=== PATIENT | female | born 2000 | race Caucasian/White ===

== ENCOUNTER 2021-11-21 18:30 | Observation (INO) ==
[2021-11-21] MEDS ORDERED: SODIUM CHLORIDE 0.9% 500 ML IV STA (18:38)
[2021-11-21] MEDS ORDERED: cefTRIAXone SODIUM 2,000 MG/70 ML BAG IV STA (19:00)
--- NOTE | 2021-11-21 19:02 | Emergency Department Note ---
History of Present Illness General Chief complaint: Fever Stated complaint: FEVER, THROWING UP, POSS REACTION TO MEDS Time Seen by Provider: 11/21/21 18:51 Source: patient History of Present Illness Provider complaint: Fever and flulike symptoms with flank pain Onset (ago): hour(s) Location: abdomen and right Pain Consistency: + intermittent Maximum Pain Intensity: 7 Quality: + sharp Relieved By: + medication (Gurdon) Associated symptoms: + fever/chills, + malaise and + nausea/vomiting; no chest pain, no cough or no shortness of breath This is a 21-year-old female who presents with flulike symptoms since yesterday. She has also had right flank pain since yesterday morning. She describes it as sharp and intermittent. It is better with Gurdon. She has associated vomiting with it today and yesterday. She was seen here in the emergency department and diagnosed with a kidney stone. She was discharged on Gurdon and Bactrim. She states that when she got home she developed a fever over 101 which she also had this morning. She also vomited and developed diffuse myalgias as well as mal aise and chills. Her flank pain is still present but better. She denies any cough or cold symptoms, loss of taste or smell, chest pain, shortness of breath, or diarrhea. Home Medications Medication Instructions Recorded Confirmed Type cholecalciferol (vitamin D3) 25 0 mcg PO QAM 11/20/21 11/21/21 History mcg (1,000 unit) tablet (Vitamin D3) hydrocodone 5 mg-acetaminophen 325 1 tab PO Q6H PRN #10 tab 11/20/21 11/21/21 Rx mg tablet levonorgestrel (Kyleena) 17.5 mcg INTRAUTERINE CONT 11/20/21 11/21/21 History melatonin 5 mg tablet 10 mg PO HS PRN 11/20/21 11/21/21 History ondansetron 4 mg disintegrating 4 mg PO Q6H PRN #15 tab 11/20/21 11/21/21 Rx tablet sulfamethoxazole 800 1 tab PO Q12H 10 Days #20 tab 11/20/21 11/21/21 Rx mg-trimethoprim 160 mg tablet (Bactrim DS) Allergies Allergy/AdvReac Type Severity Reaction Status Date / Time Penicillins Allergy Mild Rash Unverified 11/20/21 10:04 Past Med/Surg History Medical History No significant past medical history Surgical History No significant past surgical history Social History Smoking Status: Current every day smoker Tobacco Type: E-cigarettes / Vaping Preferred Language: Sinhala current occupational status: student Feels Safe at Home: Yes Review of Systems See HPI for pertinent positives & negatives. and A total of 10 systems reviewed and were otherwise negative Physical Exam Vital Signs Vital Signs - 24 hr 11/21/21 18:35 11/21/21 19:37 11/21/21 22:00 Temperature 37.5 C Temperature Source Temporal Artery Scan Oral Pulse Rate 116 H Pulse Rate [Finger] 101 H 106 H Pulse Rhythm Regular Pulse Strength Normal Respiratory Rate 20 16 18 Respiratory Effort / Characteristics Non-Labored Spontaneous Respiratory Depth Normal Respiratory Pattern Regular Blood Pressure 115/65 Blood Pressure [Right Arm] 117/73 128/62 Blood Pressure Mean 81 Blood Pressure Mean [Right Arm] 87 84 Blood Pressure Position Sitting Pulse Oximetry 95 99 95 Oxygen Delivery Method Room Air Room Air Room Air Sepsis Recent Fever Within 48 Hours Yes Sepsis New/Unexplained Change in Mental Status No Sepsis Action Taken by Nursing No Action Required Constitutional: Vital signs reviewed. Eyes: Pupils are equal round reactive to light. Conjunctiva are noninjected. ENT: Pharynx is clear without erythema or exudate. Mucous membranes are moist. Neck supple without meningeal signs. Respiratory: Clear to auscultation bilaterally. Breath sounds are equal bilaterally. Cardiovascular: Tachycardia. Heart rate 112. GI: Soft, nondistended and nontender. Bowel sounds are present. Musculoskeletal: No peripheral edema. Mild right CVA tenderness. Integumentary: No cyanosis. or jaundice. Neurological: The patient is awake and alert. No focal deficits. Psychiatric: Normal affect. Not anxious appearing. Course Administered Medications Discontinued Medications Acetaminophen (Acetaminophen 325 Mg Tab) 650 mg PO NOW STA Stop: 11/21/21 20:01 Last Admin: 11/21/21 20:17 Dose: 650 mg Documented by: [id number] Sodium Chloride (Nss) 500 mls @ 999 mls/hr IV .Q31M STA Stop: 11/21/21 19:08 Last Infusion: 11/21/21 21:21 Dose: 0 mls/hr Documented by: [id number] Admin: 11/21/21 19:44 Dose: 999 mls/hr Documented by: [id number] Ceftriaxone Sodium (Rocephin) 2,000 mg in 70 mls @ 140 mls/hr IV NOW STA Stop: 11/21/21 19:29 Last Infusion: 11/21/21 20:27 Dose: 0 mls/hr Documented by: [id number] Admin: 11/21/21 19:41 Dose: 140 mls/hr Documented by: [id number] Ondansetron HCl (Ondansetron Inj 2 Mg/Ml 2 Ml Vial) 4 mg IV NOW STA Stop: 11/21/21 20:01 Last Admin: 11/21/21 20:17 Dose: 4 mg Documented by: [id number] Medical Decision Making Differential Diagnosis Pyelonephritis, obstructive uropathy, ureterolithiasis, COVID-19, cystitis Medical Records Attestation: I reviewed the patient's medical records. I did perform a limited focused review of portions of the patient's old chart on the electronic medical record. The patient was seen here yesterday for right flank pain. She was diagnosed with a possible kidney infection versus recently passed stone. She had a CT scan which did not show any hydronephrosis. She had a possible punctate calculus in the right kidney. She was discharged on Gurdon, Bactrim and Zofran. Home Medications Current Medication List: was personally reviewed by me Laboratory Data Attestation: I reviewed the patient's lab results. Result diagrams: 11/21/21 18:53 11/21/21 18:53 Lab Results 11/21/21 11/21/21 11/21/21 Range/Units 18:38 18:53 18:53 WBC 12.21 H (4.8-10.8) K/uL RBC 4.41 (4.2-5.4) M/uL Hgb 14.2 (12.0-16.0) g/dL Hct 41.7 (37-47) % MCV 94.6 (80-100) fL MCH 32.2 (25-34) pg MCHC 34.1 (32-36) g/dL RDW Std Deviation 46.3 (36.4-46.3) fL RDW Coeff of Nola 13.4 (11.5-14.5) % Plt Count 162 (130-400) K/uL MPV 10.8 H (7.4-10.4) fL Sodium 135 L (136-145) mmol/L Potassium 3.8 (3.5-5.1) mmol/L Chloride 103 (98-107) mmol/L Carbon Dioxide 23 (21-32) mmol/L Anion Gap 9 (3-11) BUN 9 (6-23) mg/dl Creatinine 0.99 (0.6-1.2) mg/dl Est Cr Clr Drug Dosing 95.7 ml/min Est GFR ( Amer) 95.1 ml/min Est GFR (Non-Af Amer) 82.0 ml/min BUN/Creatinine Ratio 9.1 L (10-20) Glucose 95 (70-99(Fasting)) mg/dl Calcium 9.1 (8.5-10.1) mg/dl Urine Color Dark Yellow Urine Appearance Cloudy A (Clear) Urine pH 5.5 (4.5-7.5) Ur Specific [place] 1.030 (1.000-1.030) Urine Protein Trace H (Negative) Urine Glucose (UA) Negative (Negative) Urine Ketones 4+ H (Negative) Urine Blood 2+ H (Negative) Urine Nitrite Negative (Negative) Urine Bilirubin Negative (Negative) Urine Urobilinogen Negative (Negative) Ur Leukocyte Esterase Trace H (Negative) Urine WBC (Auto) 10-30 H (0-5) /hpf Urine RBC (Auto) 5-10 H (0-4) /hpf U Hyaline Cast (Auto) 0 (0-5) /lpf U Epithel Cells (Auto) >30 H (0-5) /lpf Urine Bacteria (Auto) 4+ H (Negative) Urine Yeast Not Reportable SARS-CoV-2, RNA, NAAT (NEGATIVE) 11/21/21 Range/Units 19:39 WBC (4.8-10.8) K/uL RBC (4.2-5.4) M/uL Hgb (12.0-16.0) g/dL Hct (37-47) % MCV (80-100) fL MCH (25-34) pg MCHC (32-36) g/dL RDW Std Deviation (36.4-46.3) fL RDW Coeff of Nola (11.5-14.5) % Plt Count (130-400) K/uL MPV (7.4-10.4) fL Sodium (136-145) mmol/L Potassium (3.5-5.1) mmol/L Chloride (98-107) mmol/L Carbon Dioxide (21-32) mmol/L Anion Gap (3-11) BUN (6-23) mg/dl Creatinine (0.6-1.2) mg/dl Est Cr Clr Drug Dosing ml/min Est GFR ( Amer) ml/min Est GFR (Non-Af Amer) ml/min BUN/Creatinine Ratio (10-20) Glucose (70-99(Fasting)) mg/dl Calcium (8.5-10.1) mg/dl Urine Color Urine Appearance (Clear) Urine pH (4.5-7.5) Ur Specific [place] (1.000-1.030) Urine Protein (Negative) Urine Glucose (UA) (Negative) Urine Ketones (Negative) Urine Blood (Negative) Urine Nitrite (Negative) Urine Bilirubin (Negative) Urine Urobilinogen (Negative) Ur Leukocyte Esterase (Negative) Urine WBC (Auto) (0-5) /hpf Urine RBC (Auto) (0-4) /hpf U Hyaline Cast (Auto) (0-5) /lpf U Epithel Cells (Auto) (0-5) /lpf Urine Bacteria (Auto) (Negative) Urine Yeast SARS-CoV-2, RNA, NAAT NEGATIVE (NEGATIVE) MDM Narrative I did evaluate the patient as noted above. She is presenting with vomiting and fever. She was seen here yesterday and placed on Bactrim for UTI. She had no obstructive uropathy on CT scanning. IV access was established. I did place an order for continuous cardiac monitoring. The monitor showed sinus tachycardia rate of 102 bpm. I did order a urine analysis. She does have evidence of UTI. test performed yesterday was negative. She was given ceftriaxone 2 g IV. I did order and review the patient's blood work as noted in the electronic medical record. Her white count is elevated at 12,000. She is not anemic. Electrolytes are unremarkable other than a sodium of 135. I did treat her with normal saline IV. She was also given Zofran IV and Tylenol p.o. I did discuss the test results with her. She remains tachycardic here and is complaining of significant chills and myalgias. Her Covid test came back negative. She will b e hospitalized for further care and evaluation. I did discuss the case with the hospitalist and wrapper caser. The hospitalist requested a renal ultrasound which I ordered and is currently pending. Impression & Plan Acute pyelonephritis, Vomiting, Fever Discharge Plan Visit Data Chief Complaint: Fever Stated Complaint: FEVER, THROWING UP, POSS REACTION TO MEDS ED Provider: Phoenix Garcia Discharge Problem: Acute pyelonephritis, Vomiting, Fever Patient Disposition: Being Evaluated by Hospitalist Forms Stand Alone Forms: My [facility] Prescriptions Prescriptions: No Action cholecalciferol (vitamin D3) [Vitamin D3] 25 mcg (1,000 unit) Tablet 0 mcg PO QAM RF: 0 Kyleena 17.5 mcg/24 hrs (5 yrs) 19.5 mg intrauterine device 17.5 mcg INTRAUTERINE CONT RF: 0 melatonin 5 mg Tablet 10 mg PO HS PRN (Reason: Sleep) RF: 0 sulfamethoxazole-trimethoprim [Bactrim DS] 800-160 mg tablet 1 tab PO Q12H 10 Days Qty: 20 RF: 0 hydrocodone-acetaminophen 5-325 mg tablet 1 tab PO Q6H PRN (Reason: pain) Qty: 10 RF: 0 ondansetron 4 mg tablet,disintegrating 4 mg PO Q6H PRN (Reason: nausea and vomiting) Qty: 15 RF: 0 Referrals Referrals: [facility] [Primary Care Provider] - Discharge Problem: Vomiting Qualifiers: Vomiting type: unspecified Nausea presence: with nausea Qualified Code(s): R11.2 - Nausea with vomiting, unspecified Fever Qualifiers: Fever type: unspecified Qualified Code(s): R50.9 - Fever, unspecified
[2021-11-21 19:03] LABS: Hematocrit (blood only) 41.7 % (37-47); Hemoglobin 14.2 g/dL (12.0-16.0); Mean Corpuscular Hemoglobin 32.2 pg (25-34); Mean Corpuscular Hgb Conc 34.1 g/dL (32-36); Mean Corpuscular Volume 94.6 fL (80-100); Mean Platelet Volume 10.8 fL (7.4-10.4); Platelet Count 162 K/uL (130-400); RDW Coefficient of Variation 13.4 % (11.5-14.5); RDW Standard Deviation 46.3 fL (36.4-46.3); Red Blood Count 4.41 M/uL (4.2-5.4); White Blood Count 12.21 K/uL (4.8-10.8)
[2021-11-21 19:13] LABS: Appearance Urine Cloudy (Clear); Bacteria Urine Automated 4+ (Negative); Bilirubin Urine Negative (Negative); Blood Urine 2+ (Negative); Color Urine Dark Yellow; Epithelial Cell Urine Auto >30 /lpf (0-5); Glucose Urine UA Negative (Negative); Ketones Urine 4+ (Negative); Leukocyte Esterase Urine Trace (Negative); Nitrite Urine Negative (Negative); Protein Urine Trace (Negative); Urobilinogen Urine Negative (Negative); pH Urine 5.5 (4.5-7.5)
[2021-11-21 19:28] LABS: BUN Creatinine Ratio 9.1 (10-20); Calcium 9.1 mg/dl (8.5-10.1); Creatinine Clr Calc Pharmacy 95.7 ml/min; Est GFR (African American) 95.1 ml/min; Potassium 3.8 mmol/L (3.5-5.1)
[2021-11-21 19:37] LABS: Cast Urine Automated 0 /lpf (0-5)
[2021-11-21] MEDS ORDERED: ONDANSETRON INJ 2 MG/ML 2 ML VIAL IV STA (20:00)
[2021-11-21] MEDS ORDERED: ACETAMINOPHEN 325 MG TAB PO STA (20:00)
--- NOTE | 2021-11-21 22:42 | History & Physical Report ---
Date of Service November 21, 2021 Assessment & Plan (1) UTI (urinary tract infection): Plan: Patient with acute UTI, on Bactrim at home with worsening symptoms. Symptoms of stuffy nose, body aches, chest burning are somewhat concerning for acute respiratory illness rather than pyelonephritis/UTI Patient is vaccinated against Covid. Her NAAT test in the ER is Negative -Will check PCR - SARS-CoV-2, Influenza A&B and RSV -Follow urine culture -Levaquin for UTI management -Tylenol PRN -Zofran PRN -Gentle IVF (2) Fever: Plan: ?Pyelonephritis/UTI vs respiratory illness as above -Awaiting results to flu testing -Tyenol PRN Plan: F/E/N - NSS at 80mL/hr x 2 liters, Regular diet Ppx - Low risk for DVT Code - Full Dispo- Observation to medical History of Present Illness Chief Complaint: body aches Primary Care Provider: [facility] Tatum Olvera is a 21yo female with no significant past medical or surgical history presenting with fever, headache, chest burning, back pain and body aches as well as nausea/vomiting, stuffy nose. Patient was seen in the ER yesterday with complaint of acute right sided flank/abdominal pain. She had a UA suggestive of infection and CT of the abdomen consistent with recently passed stone vs infectious process. She was discharged home in stable condition with Bactrim for UTI/Pyelo. Patient reports feeling much worse today. She has had persistent fever as well as body aches, fatigue, stuffy nose, nausea, po intolerance and chest burning. She is vaccinated against Covid-19. No known contacts. Allergies Allergy/AdvReac Type Severity Reaction Status Date / Time Penicillins Allergy Mild Rash Unverified 11/20/21 10:04 Home Medications Medication Instructions Recorded Confirmed Type cholecalciferol (vitamin D3) 25 0 mcg PO QAM 11/20/21 11/21/21 History mcg (1,000 unit) tablet (Vitamin D3) hydrocodone 5 mg-acetaminophen 325 1 tab PO Q6H PRN #10 tab 11/20/21 11/21/21 Rx mg tablet levonorgestrel (Kyleena) 17.5 mcg INTRAUTERINE CONT 11/20/21 11/21/21 History melatonin 5 mg tablet 10 mg PO HS PRN 11/20/21 11/21/21 History ondansetron 4 mg disintegrating 4 mg PO Q6H PRN #15 tab 11/20/21 11/21/21 Rx tablet sulfamethoxazole 800 1 tab PO Q12H 10 Days #20 tab 11/20/21 11/21/21 Rx mg-trimethoprim 160 mg tablet (Bactrim DS) Past Med/Surg History Medical History No significant past medical history Surgical History No significant past surgical history Social History Smoking Status: Current every day smoker Tobacco Type: E-cigarettes / Vaping Preferred Language: Ecuadorean current occupational status: student Feels Safe at Home: Yes Review of Systems Review of Systems: All systems reviewed & are unremarkable except as noted in HPI & below Physical Exam Physical Exam: General: patient resting comfortably, NAD, ill in appearance Skin: warm, dry, intact, no rashes or lesions HEENT: NC/AT, PERRL, EOMI, anicteric sclera, conjunctiva without injection, external ear normal to inspection and nontender, nares patent, moist mucus membranes, dentition intact, no oropharyngeal lesions, neck supple, trachea midline, no LAD, no thyromegaly, no JVD Heart: +S1/S2, regular, tachycardic, no m/r/g Lungs: equal air entry bilaterally, no rales/rhonchi/wheezes Abd: +BS, soft, NT/ND, no masses/organomegaly/ascites, no CVA tenderness Ext: warm, 2+ pulses in UE/LE bilaterally, no clubbing/cyanosis or edema Neuro: nonfocal, patient AA&O x 4, speech intact, no facial droop, moving all extremities on command with equal strength 5/5 Results & Data Results & Data ([facility]) Vital Signs (Past 12 Hours) Vital Signs Temp Pulse Pulse Resp BP BP Pulse Ox 11/21/21 22:00 106 H 18 128/62 95 11/21/21 19:37 37.5 C 101 H 16 117/73 99 11/21/21 18:35 116 H 20 115/65 95 Laboratory Results Laboratory Results WBC 12.21 K/uL (4.8-10.8) H 11/21/21 18:53 RBC 4.41 M/uL (4.2-5.4) 11/21/21 18:53 Hgb 14.2 g/dL (12.0-16.0) 11/21/21 18:53 Hct 41.7 % (37-47) 11/21/21 18:53 MCV 94.6 fL (80-100) 11/21/21 18:53 MCH 32.2 pg (25-34) 11/21/21 18:53 MCHC 34.1 g/dL (32-36) 11/21/21 18:53 RDW Std Deviation 46.3 fL (36.4-46.3) 11/21/21 18:53 RDW Coeff of Nola 13.4 % (11.5-14.5) 11/21/21 18:53 Plt Count 162 K/uL (130-400) 11/21/21 18:53 MPV 10.8 fL (7.4-10.4) H 11/21/21 18:53 Sodium 135 mmol/L (136-145) L 11/21/21 18:53 Potassium 3.8 mmol/L (3.5-5.1) 11/21/21 18:53 Chloride 103 mmol/L (98-107) 11/21/21 18:53 Carbon Dioxide 23 mmol/L (21-32) 11/21/21 18:53 Anion Gap 9 (3-11) 11/21/21 18:53 BUN 9 mg/dl (6-23) 11/21/21 18:53 Creatinine 0.99 mg/dl (0.6-1.2) 11/21/21 18:53 Est Cr Clr Drug Dosing 95.7 ml/min 11/21/21 18:53 Est GFR ( Amer) 95.1 ml/min 11/21/21 18:53 Est GFR (Non-Af Amer) 82.0 ml/min 11/21/21 18:53 BUN/Creatinine Ratio 9.1 (10-20) L 11/21/21 18:53 Glucose 95 mg/dl (70-99(Fasting)) 11/21/21 18:53 Calcium 9.1 mg/dl (8.5-10.1) 11/21/21 18:53 Urine Color Dark Yellow 11/21/21 18:38 Urine Appearance Cloudy (Clear) A 11/21/21 18:38 Urine pH 5.5 (4.5-7.5) 11/21/21 18:38 Ur Specific [place] 1.030 (1.000-1.030) 11/21/21 18:38 Urine Protein Trace (Negative) H 11/21/21 18:38 Urine Glucose (UA) Negative (Negative) 11/21/21 18:38 Urine Ketones 4+ (Negative) H 11/21/21 18:38 Urine Blood 2+ (Negative) H 11/21/21 18:38 Urine Nitrite Negative (Negative) 11/21/21 18:38 Urine Bilirubin Negative (Negative) 11/21/21 18:38 Urine Urobilinogen Negative (Negative) 11/21/21 18:38 Ur Leukocyte Esterase Trace (Negative) H 11/21/21 18:38 Urine WBC (Auto) 10-30 /hpf (0-5) H 11/21/21 18:38 Urine RBC (Auto) 5-10 /hpf (0-4) H 11/21/21 18:38 U Hyaline Cast (Auto) 0 /lpf (0-5) 11/21/21 18:38 U Epithel Cells (Auto) >30 /lpf (0-5) H 11/21/21 18:38 Urine Bacteria (Auto) 4+ (Negative) H 11/21/21 18:38 Urine Yeast Not Reportable 11/21/21 18:38 SARS-CoV-2, RNA, NAAT NEGATIVE (NEGATIVE) 11/21/21 19:39 Diagnostic Findings Renal US - Comparison to November 20, 2021 - The right kidney measures 12.3 x 3.9 x 4.6cm with normal appearance. No hydronephrosis. The left kidney measures 10.3 x 4.1 x 5.2 with normal appearance. No hydronephrosis. The urinary bladder is partially distended and unremarkable. The left ovary is visible with normal doppler blood flow. There is a 2.5cm simple cyst. There is trace amount of free fluid adjacent to the ovary. Code Status & VTE Plan VTE Prophylaxis Plan VTE Prophylaxis will be ordered: No PG Care Time/CCT Total # of Minutes Spent Total Time Spent with Patient: Total time spent is greater than 50% in coordination of care (as documented) at patient's floor/unit and/or counseling patient: Coding Level of Care Code INT OBSERVATION CARE 50M LVL 2 Diagnoses UTI (urinary tract infection) N39.0; R31.9 Hematuria presence: with hematuria Urinary tract infection type: site unspecified Fever R50.9 Fever type: unspecified (1) UTI (urinary tract infection) Hematuria presence: with hematuria Urinary tract infection type: site unspecified Qualified Code(s): N39.0 - Urinary tract infection, site not specified; R31.9 - Hematuria, unspecified (2) Fever Fever type: unspecified Qualified Code(s): R50.9 - Fever, unspecified
[2021-11-21] MEDS ORDERED: MELATONIN 3 MG TAB PO PRN (23:46)
[2021-11-21] MEDS ORDERED: HYDROCODONE/ACETAMOPHEN 5/325MG TAB PO PRN (23:46)
[2021-11-21] MEDS: SODIUM CHLORIDE 0.9% 1000ML 1,000 ML IV SCH (23:50)
[2021-11-22] MEDS: levoFLOXacin/D5W 750 MG/150 ML BAG IV SCH ×2 (00:26→22:49)
[2021-11-22] MEDS: ONDANSETRON INJ 2 MG/ML 2 ML VIAL IV PRN ×2 (06:25→20:17)
[2021-11-22] MEDS ORDERED: oxyCODONE HCL IR 5 MG TAB (IMMEDIATE RELEASE) PO STA (06:34)
[2021-11-22 06:42] LABS: Eosinophils # (auto) 0.18 K/uL (0-0.5); Eosinophils % (auto) 2.6 %; Hematocrit (blood only) 39.7 % (37-47); Hemoglobin 13.1 g/dL (12.0-16.0); Immature Granulocytes # (auto) 0.01 K/uL (0.00-0.02); Immature Granulocytes % (auto) 0.1 %; Lymphocytes # (auto) 0.39 K/uL (1.2-3.4); Lymphocytes % (auto) 5.6 %; Mean Corpuscular Hemoglobin 31.3 pg (25-34); Mean Platelet Volume 10.9 fL (7.4-10.4); Monocytes # (auto) 0.61 K/uL (0.11-0.59); Monocytes % (auto) 8.8 %; Neutrophils # (auto) 5.72 K/uL (1.4-6.5); Neutrophils % (auto) 82.9 %; Platelet Count 139 K/uL (130-400); RDW Coefficient of Variation 13.5 % (11.5-14.5); RDW Standard Deviation 46.6 fL (36.4-46.3); Red Blood Count 4.18 M/uL (4.2-5.4); White Blood Count 6.91 K/uL (4.8-10.8)
[2021-11-22] MEDS ORDERED: PROMETHAZINE HCL 6.25 MG in SODIUM CHLORIDE 0.9% 50 ML IV PRN (07:13)
[2021-11-22 07:14] LABS: BUN Creatinine Ratio 8.7 (10-20); Calcium 8.1 mg/dl (8.5-10.1); Est GFR (African American) 103.9 ml/min; Est GFR (Non-African American) 89.6 ml/min; Potassium 4.1 mmol/L (3.5-5.1)
--- NOTE | 2021-11-22 07:58 | Ultrasound Report ---
US renal/blad retro comp HISTORY: 21 years-old Female eval for abscess/hydro acute right-sided flank pain COMPARISON: CT abdomen pelvis 11/20/2021 TECHNIQUE: Multiple real-time sonographic images of the kidneys and urinary bladder were obtained ass essing grayscale appearance and color flow FINDINGS: The right kidney measures 12.3 x 3.9 x 4.6 cm and demonstrates no definite renal calculi or hydroneph rosis. Left kidney measures 10.3 x 4.1 x 5.2 cm and demonstrates no renal calculi or hydronephrosis. Unremarkable urinary bladder with bilateral ureteral jets. Left ovarian dominant follicle measures 2. 5 cm. Arterial inflow and venous outflow is documented within the left ovary. Trace left free pelvic fluid, likely physiologic. IMPRESSION: 1. Normal sonographic appearance of the kidneys and urinary bladder. 2. Dominant left ovarian follicle incidentally noted with trace likely physiologic free pelvic fluid. ACT 112: Negative or not required by law. The above report was generated using voice recognition software. It may contain grammatical, syntax o r spelling errors. Electronically signed by: James Orlando M.D. 11/22/2021 7:57 AM
--- NOTE | 2021-11-22 08:37 | Hospitalist Progress Note ---
Date of Service November 22, 2021 Assessment & Plan (1) UTI (urinary tract infection): Plan: Patient with acute UTI, on Bactrim at home with worsening symptoms. Symptoms of stuffy nose, body aches, chest burning are somewhat concerning for acute respiratory illness rather than pyelonephritis/UTI Patient is vaccinated against Covid. Her NAAT test in the ER is Negative Checking PCR COVID, Influenza A/B, RSV as well for completeness Renal US without obstruction -- could have had recently passed stone given most recent CTA/P on 11/20 when she initially presented with UTI symptoms and d/c on Bactrim Remains on Levaquin for UTI/resp symptoms WBC trending down --> 14K on 11/20, 12.2 on admit and currently 6.9 No further fevers at this time Monitor urine culture -- (prior with more than 3 organisms, all mod counts from 11/20) however now with 4+ ketones, 2+ blood, trace leuk est(prior neg), 4+ bacteria compared to 3. 10-30WBC compared to 5-10 Increase IVF to 100cc/hr given weight 94kg and not eating much Cr stable Toradol added for pain control if needed, Tylenol Zofran prn nausea (2) Fever: Plan: ?Pyelonephritis/UTI vs respiratory illness as above -Awaiting results to flu testing -- negative -Tyenol PRN Toradol added as above (3) Kidney stone: Plan: suspected recent passage of such Renal US without evidence of current stone (4) Acute pyelonephritis: Plan: treating as such. prior +CVA tenderness on exam from ER visit 11/20 On levaquin as above (5) Hyponatremia: Plan: not eating/drinking much [employer]. Also with n/v IVF increased to 100cc/hr today Also will check TSH for completeness given reports of lethargy//fatigue and now with likely recent stone, as BUN/Cr not overly indicative of dehydration but did have slightly dry mm on exam (6) Headache: Plan: reported continuous got percocet, could be rebound prior hx migraine tx successfully with Excedrin had not been eating/drinking much and inquired about caffeine --> admits has not had and used to drinking 3 monster energy drinks/day will give fioricet x 1, monitor response IVF increased as above for mild dehydration no focal deficit to warrant CT at this time Continue to monitor Plan: Ppx - Low risk for DVT, SCDs, ambulation encouraged Admission and Anticipated Discharge Date Admission Date: November 21, 2021 Subjective patient evaluated this morning. states she took one dose bactrim prior to coming back to hospital for recurrent fevers/n/v/generalized abdominal pain feeling ok sleeping most of morning no further fevers urine improving in color abd pain previously everywhere/R sided, improved but reporting headache, persistent. +Photophobia. Behind the eyes. discussed opiates/rebound. ordered toradol. she has hx migraine in past and has taken excedrin with effectiveness discussed caffeine intake -- she reports 3-4 monster energy drinks daily. has test coming up wednesday she hasn't been able to study for discussed monitoring urine cx, possible d/c on oral tomorrow if keeping up with oral intake but hasn't been eating/drinking much. no further nausea. Review of Systems Review of Systems: All systems reviewed & are unremarkable except as noted in HPI & below Physical Exam Physical Exam: General: WD/WN female laying on side in hospital bed sleeping on entry, no acute distress Eyes: +photophobia but pupils equal and reactive to light, EOMI, no meningeal signs ENT: dry mm, trachea midline, no deviation Resp: CTAB, no w/c/r, on room air CV: regular rhythm, rate 90bpm, no m/r/g, no edema/calf tenderness GI: +BS, soft, non-tender, non-distended : no arroyo, no CVA tenderness Psych: alert, oriented, flat affect, sleepy Results & Data Results & Data ([facility]) Vital Signs (Past 12 Hours) Vital Signs Temp Pulse Resp BP Pulse Ox 11/22/21 07:55 37.2 C 104 H 16 124/56 L 94 11/22/21 01:13 37.5 C 103 H 16 113/68 97 11/21/21 22:00 106 H 18 128/62 95 Laboratory Results 11/22/21 11/22/21 11/22/21 Range/Units 09:20 06:11 06:11 WBC 6.91 (4.8-10.8) K/uL RBC 4.18 L (4.2-5.4) M/uL Hgb 13.1 (12.0-16.0) g/dL Hct 39.7 (37-47) % MCV 95.0 (80-100) fL MCH 31.3 (25-34) pg MCHC 33.0 (32-36) g/dL RDW Std Deviation 46.6 H (36.4-46.3) fL RDW Coeff of Nola 13.5 (11.5-14.5) % Plt Count 139 (130-400) K/uL MPV 10.9 H (7.4-10.4) fL Immature Gran % (Auto) 0.1 % Neut % (Auto) 82.9 % Lymph % (Auto) 5.6 % [place] % (Auto) 8.8 % Eos % (Auto) 2.6 % Baso % (Auto) 0.0 % Neut # (Auto) 5.72 (1.4-6.5) K/uL Lymph # (Auto) 0.39 L (1.2-3.4) K/uL [place] # (Auto) 0.61 H (0.11-0.59) K/uL Eos # (Auto) 0.18 (0-0.5) K/uL Baso # (Auto) 0.00 (0-0.2) K/uL Immature Gran # (Auto) 0.01 (0.00-0.02) K/uL Sodium 132 L (136-145) mmol/L Potassium 4.1 (3.5-5.1) mmol/L Chloride 103 (98-107) mmol/L Carbon Dioxide 24 (21-32) mmol/L Anion Gap 5 (3-11) BUN 8 (6-23) mg/dl Creatinine 0.92 (0.6-1.2) mg/dl Est Cr Clr Drug Dosing 109.0 ml/min Est GFR ( Amer) 103.9 ml/min Est GFR (Non-Af Amer) 89.6 ml/min BUN/Creatinine Ratio 8.7 L (10-20) Glucose 90 (70-99(Fasting)) mg/dl Calcium 8.1 L (8.5-10.1) mg/dl Urine Color Urine Appearance (Clear) Urine pH (4.5-7.5) Ur Specific [place] (1.000-1.030) Urine Protein (Negative) Urine Glucose (UA) (Negative) Urine Ketones (Negative) Urine Blood (Negative) Urine Nitrite (Negative) Urine Bilirubin (Negative) Urine Urobilinogen (Negative) Ur Leukocyte Esterase (Negative) Urine WBC (Auto) (0-5) /hpf Urine RBC (Auto) (0-4) /hpf U Hyaline Cast (Auto) (0-5) /lpf U Epithel Cells (Auto) (0-5) /lpf Urine Bacteria (Auto) (Negative) Urine Yeast SARS-CoV-2 (PCR) NEGATIVE (Negative) Influenza Type A (PCR) Negative (Neg) Influenza Type B (PCR) Negative (Neg) RSV (RT-PCR) Negative (Neg) SARS-CoV-2, RNA, NAAT (NEGATIVE) 11/21/21 11/21/21 11/21/21 Range/Units 19:39 18:53 18:53 WBC 12.21 H (4.8-10.8) K/uL RBC 4.41 (4.2-5.4) M/uL Hgb 14.2 (12.0-16.0) g/dL Hct 41.7 (37-47) % MCV 94.6 (80-100) fL MCH 32.2 (25-34) pg MCHC 34.1 (32-36) g/dL RDW Std Deviation 46.3 (36.4-46.3) fL RDW Coeff of Nola 13.4 (11.5-14.5) % Plt Count 162 (130-400) K/uL MPV 10.8 H (7.4-10.4) fL Immature Gran % (Auto) % Neut % (Auto) % Lymph % (Auto) % [place] % (Auto) % Eos % (Auto) % Baso % (Auto) % Neut # (Auto) (1.4-6.5) K/uL Lymph # (Auto) (1.2-3.4) K/uL [place] # (Auto) (0.11-0.59) K/uL Eos # (Auto) (0-0.5) K/uL Baso # (Auto) (0-0.2) K/uL Immature Gran # (Auto) (0.00-0.02) K/uL Sodium 135 L (136-145) mmol/L Potassium 3.8 (3.5-5.1) mmol/L Chloride 103 (98-107) mmol/L Carbon Dioxide 23 (21-32) mmol/L Anion Gap 9 (3-11) BUN 9 (6-23) mg/dl Creatinine 0.99 (0.6-1.2) mg/dl Est Cr Clr Drug Dosing 95.7 ml/min Est GFR ( Amer) 95.1 ml/min Est GFR (Non-Af Amer) 82.0 ml/min BUN/Creatinine Ratio 9.1 L (10-20) Glucose 95 (70-99(Fasting)) mg/dl Calcium 9.1 (8.5-10.1) mg/dl Urine Color Urine Appearance (Clear) Urine pH (4.5-7.5) Ur Specific [place] (1.000-1.030) Urine Protein (Negative) Urine Glucose (UA) (Negative) Urine Ketones (Negative) Urine Blood (Negative) Urine Nitrite (Negative) Urine Bilirubin (Negative) Urine Urobilinogen (Negative) Ur Leukocyte Esterase (Negative) Urine WBC (Auto) (0-5) /hpf Urine RBC (Auto) (0-4) /hpf U Hyaline Cast (Auto) (0-5) /lpf U Epithel Cells (Auto) (0-5) /lpf Urine Bacteria (Auto) (Negative) Urine Yeast SARS-CoV-2 (PCR) (Negative) Influenza Type A (PCR) (Neg) Influenza Type B (PCR) (Neg) RSV (RT-PCR) (Neg) SARS-CoV-2, RNA, NAAT NEGATIVE (NEGATIVE) 11/21/21 Range/Units 18:38 WBC (4.8-10.8) K/uL RBC (4.2-5.4) M/uL Hgb (12.0-16.0) g/dL Hct (37-47) % MCV (80-100) fL MCH (25-34) pg MCHC (32-36) g/dL RDW Std Deviation (36.4-46.3) fL RDW Coeff of Nola (11.5-14.5) % Plt Count (130-400) K/uL MPV (7.4-10.4) fL Immature Gran % (Auto) % Neut % (Auto) % Lymph % (Auto) % [place] % (Auto) % Eos % (Auto) % Baso % (Auto) % Neut # (Auto) (1.4-6.5) K/uL Lymph # (Auto) (1.2-3.4) K/uL [place] # (Auto) (0.11-0.59) K/uL Eos # (Auto) (0-0.5) K/uL Baso # (Auto) (0-0.2) K/uL Immature Gran # (Auto) (0.00-0.02) K/uL Sodium (136-145) mmol/L Potassium (3.5-5.1) mmol/L Chloride (98-107) mmol/L Carbon Dioxide (21-32) mmol/L Anion Gap (3-11) BUN (6-23) mg/dl Creatinine (0.6-1.2) mg/dl Est Cr Clr Drug Dosing ml/min Est GFR ( Amer) ml/min Est GFR (Non-Af Amer) ml/min BUN/Creatinine Ratio (10-20) Glucose (70-99(Fasting)) mg/dl Calcium (8.5-10.1) mg/dl Urine Color Dark Yellow Urine Appearance Cloudy A (Clear) Urine pH 5.5 (4.5-7.5) Ur Specific [place] 1.030 (1.000-1.030) Urine Protein Trace H (Negative) Urine Glucose (UA) Negative (Negative) Urine Ketones 4+ H (Negative) Urine Blood 2+ H (Negative) Urine Nitrite Negative (Negative) Urine Bilirubin Negative (Negative) Urine Urobilinogen Negative (Negative) Ur Leukocyte Esterase Trace H (Negative) Urine WBC (Auto) 10-30 H (0-5) /hpf Urine RBC (Auto) 5-10 H (0-4) /hpf U Hyaline Cast (Auto) 0 (0-5) /lpf U Epithel Cells (Auto) >30 H (0-5) /lpf Urine Bacteria (Auto) 4+ H (Negative) Urine Yeast Not Reportable SARS-CoV-2 (PCR) (Negative) Influenza Type A (PCR) (Neg) Influenza Type B (PCR) (Neg) RSV (RT-PCR) (Neg) SARS-CoV-2, RNA, NAAT (NEGATIVE) Diagnostic Findings 11/22/21 11/22/21 11/22/21 Range/Units 09:20 06:11 06:11 WBC 6.91 (4.8-10.8) K/uL RBC 4.18 L (4.2-5.4) M/uL Hgb 13.1 (12.0-16.0) g/dL Hct 39.7 (37-47) % MCV 95.0 (80-100) fL MCH 31.3 (25-34) pg MCHC 33.0 (32-36) g/dL RDW Std Deviation 46.6 H (36.4-46.3) fL RDW Coeff of Nola 13.5 (11.5-14.5) % Plt Count 139 (130-400) K/uL MPV 10.9 H (7.4-10.4) fL Immature Gran % (Auto) 0.1 % Neut % (Auto) 82.9 % Lymph % (Auto) 5.6 % [place] % (Auto) 8.8 % Eos % (Auto) 2.6 % Baso % (Auto) 0.0 % Neut # (Auto) 5.72 (1.4-6.5) K/uL Lymph # (Auto) 0.39 L (1.2-3.4) K/uL [place] # (Auto) 0.61 H (0.11-0.59) K/uL Eos # (Auto) 0.18 (0-0.5) K/uL Baso # (Auto) 0.00 (0-0.2) K/uL Immature Gran # (Auto) 0.01 (0.00-0.02) K/uL Sodium 132 L (136-145) mmol/L Potassium 4.1 (3.5-5.1) mmol/L Chloride 103 (98-107) mmol/L Carbon Dioxide 24 (21-32) mmol/L Anion Gap 5 (3-11) BUN 8 (6-23) mg/dl Creatinine 0.92 (0.6-1.2) mg/dl Est Cr Clr Drug Dosing 109.0 ml/min Est GFR ( Amer) 103.9 ml/min Est GFR (Non-Af Amer) 89.6 ml/min BUN/Creatinine Ratio 8.7 L (10-20) Glucose 90 (70-99(Fasting)) mg/dl Calcium 8.1 L (8.5-10.1) mg/dl Urine Color Urine Appearance (Clear) Urine pH (4.5-7.5) Ur Specific [place] (1.000-1.030) Urine Protein (Negative) Urine Glucose (UA) (Negative) Urine Ketones (Negative) Urine Blood (Negative) Urine Nitrite (Negative) Urine Bilirubin (Negative) Urine Urobilinogen (Negative) Ur Leukocyte Esterase (Negative) Urine WBC (Auto) (0-5) /hpf Urine RBC (Auto) (0-4) /hpf U Hyaline Cast (Auto) (0-5) /lpf U Epithel Cells (Auto) (0-5) /lpf Urine Bacteria (Auto) (Negative) Urine Yeast SARS-CoV-2 (PCR) NEGATIVE (Negative) Influenza Type A (PCR) Negative (Neg) Influenza Type B (PCR) Negative (Neg) RSV (RT-PCR) Negative (Neg) SARS-CoV-2, RNA, NAAT (NEGATIVE) 11/21/21 11/21/21 11/21/21 Range/Units 19:39 18:53 18:53 WBC 12.21 H (4.8-10.8) K/uL RBC 4.41 (4.2-5.4) M/uL Hgb 14.2 (12.0-16.0) g/dL Hct 41.7 (37-47) % MCV 94.6 (80-100) fL MCH 32.2 (25-34) pg MCHC 34.1 (32-36) g/dL RDW Std Deviation 46.3 (36.4-46.3) fL RDW Coeff of Nola 13.4 (11.5-14.5) % Plt Count 162 (130-400) K/uL MPV 10.8 H (7.4-10.4) fL Immature Gran % (Auto) % Neut % (Auto) % Lymph % (Auto) % [place] % (Auto) % Eos % (Auto) % Baso % (Auto) % Neut # (Auto) (1.4-6.5) K/uL Lymph # (Auto) (1.2-3.4) K/uL [place] # (Auto) (0.11-0.59) K/uL Eos # (Auto) (0-0.5) K/uL Baso # (Auto) (0-0.2) K/uL Immature Gran # (Auto) (0.00-0.02) K/uL Sodium 135 L (136-145) mmol/L Potassium 3.8 (3.5-5.1) mmol/L Chloride 103 (98-107) mmol/L Carbon Dioxide 23 (21-32) mmol/L Anion Gap 9 (3-11) BUN 9 (6-23) mg/dl Creatinine 0.99 (0.6-1.2) mg/dl Est Cr Clr Drug Dosing 95.7 ml/min Est GFR ( Amer) 95.1 ml/min Est GFR (Non-Af Amer) 82.0 ml/min BUN/Creatinine Ratio 9.1 L (10-20) Glucose 95 (70-99(Fasting)) mg/dl Calcium 9.1 (8.5-10.1) mg/dl Urine Color Urine Appearance (Clear) Urine pH (4.5-7.5) Ur Specific [place] (1.000-1.030) Urine Protein (Negative) Urine Glucose (UA) (Negative) Urine Ketones (Negative) Urine Blood (Negative) Urine Nitrite (Negative) Urine Bilirubin (Negative) Urine Urobilinogen (Negative) Ur Leukocyte Esterase (Negative) Urine WBC (Auto) (0-5) /hpf Urine RBC (Auto) (0-4) /hpf U Hyaline Cast (Auto) (0-5) /lpf U Epithel Cells (Auto) (0-5) /lpf Urine Bacteria (Auto) (Negative) Urine Yeast SARS-CoV-2 (PCR) (Negative) Influenza Type A (PCR) (Neg) Influenza Type B (PCR) (Neg) RSV (RT-PCR) (Neg) SARS-CoV-2, RNA, NAAT NEGATIVE (NEGATIVE) 11/21/21 Range/Units 18:38 WBC (4.8-10.8) K/uL RBC (4.2-5.4) M/uL Hgb (12.0-16.0) g/dL Hct (37-47) % MCV (80-100) fL MCH (25-34) pg MCHC (32-36) g/dL RDW Std Deviation (36.4-46.3) fL RDW Coeff of Nola (11.5-14.5) % Plt Count (130-400) K/uL MPV (7.4-10.4) fL Immature Gran % (Auto) % Neut % (Auto) % Lymph % (Auto) % [place] % (Auto) % Eos % (Auto) % Baso % (Auto) % Neut # (Auto) (1.4-6.5) K/uL Lymph # (Auto) (1.2-3.4) K/uL [place] # (Auto) (0.11-0.59) K/uL Eos # (Auto) (0-0.5) K/uL Baso # (Auto) (0-0.2) K/uL Immature Gran # (Auto) (0.00-0.02) K/uL Sodium (136-145) mmol/L Potassium (3.5-5.1) mmol/L Chloride (98-107) mmol/L Carbon Dioxide (21-32) mmol/L Anion Gap (3-11) BUN (6-23) mg/dl Creatinine (0.6-1.2) mg/dl Est Cr Clr Drug Dosing ml/min Est GFR ( Amer) ml/min Est GFR (Non-Af Amer) ml/min BUN/Creatinine Ratio (10-20) Glucose (70-99(Fasting)) mg/dl Calcium (8.5-10.1) mg/dl Urine Color Dark Yellow Urine Appearance Cloudy A (Clear) Urine pH 5.5 (4.5-7.5) Ur Specific [place] 1.030 (1.000-1.030) Urine Protein Trace H (Negative) Urine Glucose (UA) Negative (Negative) Urine Ketones 4+ H (Negative) Urine Blood 2+ H (Negative) Urine Nitrite Negative (Negative) Urine Bilirubin Negative (Negative) Urine Urobilinogen Negative (Negative) Ur Leukocyte Esterase Trace H (Negative) Urine WBC (Auto) 10-30 H (0-5) /hpf Urine RBC (Auto) 5-10 H (0-4) /hpf U Hyaline Cast (Auto) 0 (0-5) /lpf U Epithel Cells (Auto) >30 H (0-5) /lpf Urine Bacteria (Auto) 4+ H (Negative) Urine Yeast Not Reportable SARS-CoV-2 (PCR) (Negative) Influenza Type A (PCR) (Neg) Influenza Type B (PCR) (Neg) RSV (RT-PCR) (Neg) SARS-CoV-2, RNA, NAAT (NEGATIVE) PG Care Time/CCT Total # of Minutes Spent Total Time Spent with Patient: Total time spent is greater than 50% in coordination of care (as documented) at patient's floor/unit and/or counseling patient: Coding Level of Care Code 41355 Subseq Obs Care Lvl 3 Diagnoses UTI (urinary tract infection) N39.0; R31.9 Hematuria presence: with hematuria Urinary tract infection type: site unspecified Fever R50.9 Fever type: unspecified Kidney stone N20.0 Acute pyelonephritis N10 Hyponatremia E87.1 Headache R51.9 (1) UTI (urinary tract infection) Hematuria presence: with hematuria Urinary tract infection type: site unspecified Qualified Code(s): N39.0 - Urinary tract infection, site not specified; R31.9 - Hematuria, unspecified (2) Fever Fever type: unspecified Qualified Code(s): R50.9 - Fever, unspecified
[2021-11-22] MEDS: POLYETHYLENE (MIRALAX) 17 GM PACK PO SCH (09:30)
--- NOTE | 2021-11-22 10:06 | XRay Report ---
XR chest 1V portable HISTORY: 21 years-old Female cough, fever, chills, URI symptoms acute cough with fever COMPARISON: CT abdomen pelvis 11/20/2021 TECHNIQUE: Portable AP view of the chest FINDINGS: The cardiomediastinal and hilar silhouettes are within normal limits. No pneumothorax, pleural effusi on, airspace consolidation or overt pulmonary edema. Bones appear grossly intact. IMPRESSION: No acute process. ACT 112: Negative or not required by law. The above report was generated using voice recognition software. It may contain grammatical, syntax o r spelling errors. Electronically signed by: James Orlando M.D. 11/22/2021 10:05 AM
[2021-11-22 11:34] LABS: Influenza A virus by PCR Negative (Neg); Influenza B virus by PCR Negative (Neg); RSV by PCR Negative (Neg); SARS CoV2 RNA(COVID-19) InHosp NEGATIVE (Negative)
[2021-11-22] MEDS: SODIUM CHLORIDE 0.9% 1000ML 1,000 ML IV SCH ×2 (11:55→20:18)
[2021-11-22] MEDS ORDERED: BUTALBITAL/ACETAMIN/CAFFEINE TAB PO STA ×2 (12:28→14:19)
[2021-11-22] MEDS: KETOROLAC TROMETHAMINE 15 MG/ML VIAL IV PRN (20:17)
[2021-11-23 05:53] LABS: Basophils # (auto) 0.01 K/uL (0-0.2); Basophils % (auto) 0.2 %; Eosinophils # (auto) 0.25 K/uL (0-0.5); Hematocrit (blood only) 37.4 % (37-47); Hemoglobin 12.4 g/dL (12.0-16.0); Lymphocytes # (auto) 1.41 K/uL (1.2-3.4); Lymphocytes % (auto) 28.2 %; Mean Corpuscular Hemoglobin 31.5 pg (25-34); Mean Corpuscular Hgb Conc 33.2 g/dL (32-36); Mean Corpuscular Volume 94.9 fL (80-100); Mean Platelet Volume 10.8 fL (7.4-10.4); Monocytes # (auto) 0.58 K/uL (0.11-0.59); Monocytes % (auto) 11.6 %; Neutrophils # (auto) 2.75 K/uL (1.4-6.5); Platelet Count 129 K/uL (130-400); RDW Coefficient of Variation 13.4 % (11.5-14.5); RDW Standard Deviation 46.7 fL (36.4-46.3); Red Blood Count 3.94 M/uL (4.2-5.4)
[2021-11-23 06:18] LABS: Albumin Globulin Ratio 1.5 (0.9-2); Albumin Level 3.4 gm/dl (3.4-5.0); BUN Creatinine Ratio 8.9 (10-20); Bilirubin,Total 0.3 mg/dl (0.2-1.0); Calcium 8.4 mg/dl (8.5-10.1); Creatinine Clr Calc Pharmacy 126.9 ml/min; Est GFR (African American) 124.9 ml/min; Est GFR (Non-African American) 107.8 ml/min; Globulin 2.3 gm/dl (2.5-4.0); Total Protein 5.7 gm/dl (6.0-8.3)
[2021-11-23] MEDS: KETOROLAC TROMETHAMINE 15 MG/ML VIAL IV PRN (07:26)
[2021-11-23] MEDS: ONDANSETRON INJ 2 MG/ML 2 ML VIAL IV PRN (07:27)
[2021-11-23] MEDS: POLYETHYLENE (MIRALAX) 17 GM PACK PO SCH (07:34)
[2021-11-23] MEDS ORDERED: CETIRIZINE HCL 10 MG TABLET PO ONE (09:03)
--- NOTE | 2021-11-23 10:22 | Discharge Summary ---
Date of Service November 23, 2021 Admission HPI Per Admitting Provider Tatum Olvera is a 21yo female with no significant past medical or surgical history presenting with fever, headache, chest burning, back pain and body aches as well as nausea/vomiting, stuffy nose. Patient was seen in the ER yesterday with complaint of acute right sided flank/abdominal pain. She had a UA suggestive of infection and CT of the abdomen consistent with recently passed stone vs infectious process. She was discharged home in stable condition with Bactrim for UTI/Pyelo. Patient reports feeling much worse today. She has had persistent fever as well as body aches, fatigue, stuffy nose, nausea, po intolerance and chest burning. She is vaccinated against Covid-19. No known contacts. Admission Exam Per Admitting Provider General: patient resting comfortably, NAD, ill in appearance Skin: warm, dry, intact, no rashes or lesions HEENT: NC/AT, PERRL, EOMI, anicteric sclera, conjunctiva without injection, external ear normal to inspection and nontender, nares patent, moist mucus membranes, dentition intact, no oropharyngeal lesions, neck supple, trachea midline, no LAD, no thyromegaly, no JVD Heart: +S1/S2, regular, tachycardic, no m/r/g Lungs: equal air entry bilaterally, no rales/rhonchi/wheezes Abd: +BS, soft, NT/ND, no masses/organomegaly/ascites, no CVA tenderness Ext: warm, 2+ pulses in UE/LE bilaterally, no clubbing/cyanosis or edema Neuro: nonfocal, patient AA&O x 4, speech intact, no facial droop, moving all extremities on command with equal strength 5/5 Principal Diagnosis UTI, Cystitis Discharge Exam General: WD/WN female laying on side dressed up in chair, anxiously awaiting discharge Eyes: pupils equal, no eyelid abnormality, no meningeal signs ENT: mmm, trachea midline, no deviation Resp: CTAB, no w/c/r, on room air CV: regular rhythm/rate, no m/r/g, no edema/calf tenderness GI: +BS, soft, non-tender, non-distended : no arroyo, no CVA tenderness Psych: alert, oriented x 3 , cooperative Discharge Data Allergies Allergy/AdvReac Type Severity Reaction Status Date / Time Penicillins Allergy Mild Rash Unverified 11/20/21 10:04 Consultations 11/21/21 20:42 ED Decision to Admit Stat Ordered Studies Renal Ultrasound 11/21/21 20:48 US renal/blad retro comp HISTORY: 21 years-old Female eval for abscess/hydro acute right-sided flank pain COMPARISON: CT abdomen pelvis 11/20/2021 TECHNIQUE: Multiple real-time sonographic images of the kidneys and urinary bladder were obtained assessing grayscale appearance and color flow FINDINGS: The right kidney measures 12.3 x 3.9 x 4.6 cm and demonstrates no definite renal calculi or hydronephrosis. Left kidney measures 10.3 x 4.1 x 5.2 cm and demonstrates no renal calculi or hydronephrosis. Unremarkable urinary bladder with bilateral ureteral jets. Left ovarian dominant follicle measures 2.5 cm. Arterial inflow and venous outflow is documented within the left ovary. Trace left free pelvic fluid, likely physiologic. IMPRESSION: 1. Normal sonographic appearance of the kidneys and urinary bladder. 2. Dominant left ovarian follicle incidentally noted with trace likely physiologic free pelvic fluid. ACT 112: Negative or not required by law. The above report was generated using voice recognition software. It may contain grammatical, syntax or spelling errors. Electronically signed by: James Orlando M.D. 11/22/2021 7:57 AM Chest X-Ray 11/22/21 08:37 XR chest 1V portable HISTORY: 21 years-old Female cough, fever, chills, URI symptoms acute cough with fever COMPARISON: CT abdomen pelvis 11/20/2021 TECHNIQUE: Portable AP view of the chest FINDINGS: The cardiomediastinal and hilar silhouettes are within normal limits. No pneumothorax, pleural effusion, airspace consolidation or overt pulmonary edema. Bones appear grossly intact. IMPRESSION: No acute process. ACT 112: Negative or not required by law. The above report was generated using voice recognition software. It may contain grammatical, syntax or spelling errors. Electronically signed by: James Orlando M.D. 11/22/2021 10:05 AM Hospital Course (1) UTI (urinary tract infection): Patient with acute UTI, on Bactrim at home with worsening symptoms. Symptoms of stuffy nose, body aches, chest burning are somewhat concerning for acute respiratory illness rather than pyelonephritis/UTI Patient is vaccinated against Covid. Her NAAT test in the ER is Negative Checking PCR COVID, Influenza A/B, RSV as well for completeness Renal US without obstruction -- could have had recently passed stone given most recent CTA/P on 11/20 when she initially presented with UTI symptoms and d/c on Bactrim Remains on Levaquin for UTI/resp symptoms WBC trending down --> 14K on 11/20, 12.2 on admit and currently 6.9 No further fevers at this time Monitor urine culture -- (prior with more than 3 organisms, all mod counts from 11/20) however now with 4+ ketones, 2+ blood, trace leuk est(prior neg), 4+ bacteria compared to 3. 10-30WBC compared to 5-10 Increase IVF to 100cc/hr given weight 94kg and not eating much Cr stable Toradol added for pain control if needed, Tylenol Zofran prn nausea Urine cx pin-point but given possible stone/infected stone and imaging from earlier in week, d/c levaquin to complete course. encouraged PO intake Added zyrtec for nasal congestion and encouraged continued use of such at d/c +/- flonase Could also have had +rhinovirus or other viral illness. Did not complete biofire but patient denied any cp/sob and CXR obtained which did not indicate any acute process --> Of note patient stated many skin sensitivities/detergents but denied allergies. Suspect some degree of possible underlying allergies and encouraged continued use of antihistamines and if continued issues in the future perhaps referral to allergy/immunology may not be a bad idea. (2) Fever: ?Pyelonephritis/UTI vs respiratory illness as above -Awaiting results to flu testing -- negative -Tyenol PRN Toradol added as above No further fever --> d/c on levaquin to complete course (3) Kidney stone: suspected recent passage of such Renal US without evidence of current stone (4) Acute pyelonephritis: treating as such. prior +CVA tenderness on exam from ER visit 11/20 On levaquin as above, rx at d/c (5) Hyponatremia: not eating/drinking much [employer]. Also with n/v reported prio IVF increased, Na improved 136 TSH wnl (6) Headache: reported continuous on admission despite opaites got percocet, could be rebound prior hx migraine tx successfully with Excedrin had not been eating/drinking much and inquired about caffeine --> admits has not had and used to drinking 3 monster energy drinks/day will give fioricet x 1, monitor response --> headache RESOLVED no focal deficit to warrant CT at this time limit caffeine/energy drinks as they could also have increased risk for stone formation None reported at d/c Total Time Total Time Spent Total Time Spent (In Minutes): 40 Discharge Plan Discharge Items Patient Disposition: Home - Self-Care Reason For Visit: FEVER, ILLNESS Discharge Diagnosis: UTI, Possible viral upper respiratory illness Goals: You have been hospitalized for an acute medical problem. During your stay at [facility], we have made an effort to correct the problem that brought you to the hospital while keeping you as comfortable as possible. Medications were used to bring your condition under control and your discharge instructions will include directions for any medications you should take after leaving the hospital. Please make sure you see your Primary Care Provider as part of your follow up plan. Activity: Resume your previous activity Non-emergency contact: Primary Care Provider Call non-emergency contact if: you have any medication questions, your symptoms worsen, your pain is not controlled and you have a fever Follow-up/Referrals: [facility] [Primary Care Provider] - Diet: Regular Addtl Attending Provider Instructions: You have been hospitalized for possible UTI. You could have also had a viral upper respiratory panel that was not noted on our testing, as we only tested for RSV/COVID/INfluenza.These testing were negative and chest xray did not show any evidence of pneumonia. You should continue zyrtec daily for allergy symptoms/nasal congestion and can consider flonase over the counter for additional relief. You were treated with Levaquin for the possible uti and the urine culture is still growing. It could have been that you had a recently passed stone. You were treated with IV fluids and labs are stable on repeat. It is strongly encouraged to push oral fluids at discharge to ensure you remain well hydrated. You will complete 5 day course Levaquin. You should alternate tylenol and ibuprofen for pain. Please return to the emergency department with any recurrent fevers, inability to keep up with oral intake or for any chest pain/shortness of breath or other symptoms concerning for you. Please follow up with [facility] in the next week to monitor your progress. Be sure to watch caffeine intake as well. It has been a pleasure being a part of the medical team providing for you while you have been in the hospital. Pending Studies at Discharge: Yes Studies:: urine culture Stand-Alone Forms: [facility], Work/School Release Medications and DC Order Prescriptions: Continued cholecalciferol (vitamin D3) [Vitamin D3] 25 mcg (1,000 unit) Tablet 0 mcg PO QAM RF: 0 Kyleena 17.5 mcg/24 hrs (5 yrs) 19.5 mg intrauterine device 17.5 mcg INTRAUTERINE CONT RF: 0 melatonin 5 mg Tablet 10 mg PO HS PRN (Reason: Sleep) RF: 0 hydrocodone-acetaminophen 5-325 mg tablet 1 tab PO Q6H PRN (Reason: pain) Qty: 10 RF: 0 ondansetron 4 mg tablet,disintegrating 4 mg PO Q6H PRN (Reason: nausea and vomiting) Qty: 15 RF: 0 Discontinued sulfamethoxazole-trimethoprim [Bactrim DS] 800-160 mg tablet 1 tab PO Q12H 10 Days Qty: 20 RF: 0 Discharge Orders: Discharge Order (Routine); Ordered 11/23/21 Ordered By: Mickie Looney/Other Patient Handouts: Urinary Tract Infections in Women Admission Data Admit Date/Time: 11/21/21 22:41 Attending Provider: Navi Garibay Admit Provider: Kelsea Ann Primary Care Provider: [facility] Other Providers: Kelsea Ann Other Interventions: Discharge Summary Assessment (RN) Last Done: 11/23/21 10:37 Supervising Physician Co-Signing Physician Notes Attending note: patient seen and examined with Machelle Ramírez PA-C. I agree with her discharge summary. I personally reviewed the labs and imaging findings. patient feeling much better, no fever, no other symptoms, eating and drinking well reviewed cultures, pin point growth but seemed to respond well to Levaquin - UTI, fever: no signs of pyelonephritis, will complete brief course of Levaquin Coding Level of Care Code 03597 OBS Care - Discharge Diagnoses UTI (urinary tract infection) N39.0; R31.9 Hematuria presence: with hematuria Urinary tract infection type: site unspecified Fever R50.9 Fever type: unspecified Kidney stone N20.0 Acute pyelonephritis N10 Hyponatremia E87.1 Headache R51.9
== END 2021-11-23 11:21 | disposition home or self-care (01) ==
LOC: ED 18:30 → 3N 18:30 → SUATTDRO 22:41 → 3N 23:16
DX: N39.0 Urinary tract infection, site not specified; Z88.0 Allergy status to penicillin; Z20.822 Contact with and (suspected) exposure to COVID-19; F17.290 Nicotine dependence, other tobacco product, uncomplicated; R31.9 Hematuria, unspecified; E87.1 Hypo-osmolality and hyponatremia; R51.9 Headache, unspecified; R50.9 Fever, unspecified; N20.0 Calculus of kidney; N10 Acute pyelonephritis